=== PATIENT | female | born 1975 | race Caucasian/White ===

== ENCOUNTER 2023-09-09 19:09 | Emergency (ER) | payer OTHER ==
[~2023-09-09] VITALS: Ht 160 cm; Wt 81.6 kg
[2023-09-09 19:12] VITALS: BP_SYST 161; PULSE 99; RESP 26; TEMP 97.3; O2SAT 98
[2023-09-09 19:21] VITALS: O2SAT 99
[2023-09-09] MEDS: IPRATROPIUM/ALBUTEROL SULFATE 3 ML AMPUL.NEB (DUONEB) INH ONE (19:21)
[2023-09-09] MEDS: methylPREDNISolone SOD SUCC/PF 62.5 MG/ML VIAL IVP ONE (19:24)
[2023-09-09] MEDS: RACEPINEPHRINE HCL 0.5 ML VIAL.NEB INH ONE (19:51)
[2023-09-09] MEDS: NACL 0.9% 1,000 ML IV ONE (20:00)
[2023-09-09] MEDS: KETOROLAC TROMETHAMINE 30 MG VIAL IVP ONE (20:21)
[2023-09-09] MEDS: ALPRAZolam 0.25 MG TABLET PO ONE (20:40)
[2023-09-09] MEDS ORDERED: ALBMDI INH (21:14)
[2023-09-09 21:23] VITALS: BP_SYST 148; PULSE 93; RESP 18; TEMP 97.8; O2SAT 100
== END 2023-09-09 21:23 | disposition home or self-care (01) ==
LOC: SED 19:09
DX: J38.5 Laryngeal spasm (principal); J45.909 Unspecified asthma, uncomplicated; F17.200 Nicotine dependence, unspecified, uncomplicated; Z71.6 Tobacco abuse counseling; Z79.899 Other long term (current) drug therapy
CPT/HCPCS: 99284; 96374; 71045; 96361; 96375; J1885; J7030; 94640; 94664; 94760; J2930

== ENCOUNTER 2023-09-19 11:40 | Emergency (ER) | payer OTHER ==
[~2023-09-19] VITALS: Ht 160 cm; Wt 81.6 kg
[~2023-09-19 11:40] MED LIST: ALBMDI INH
[2023-09-19 11:48] VITALS: BP_SYST 146; PULSE 85; RESP 18; TEMP 98.3; O2SAT 100
[2023-09-19] MEDS: IPRATROPIUM/ALBUTEROL SULFATE 3 ML AMPUL.NEB (DUONEB) INH ONE (12:19)
[2023-09-19 12:27] LABS: BASOPHILS % (AUTO) 0.1 % (0.0-2.0); EOSINOPHILS % (AUTO) 0.1 % (0.0-4.0); HEMATOCRIT 26.5 % (36-48); HEMOGLOBIN 8.3 g/dL (12.0-16.0); LYMPHOCYTES # (AUTO) 1.4 K/uL (1.0-5.5); LYMPHOCYTES % (AUTO) 13.5 % (20.5-51.5); MEAN CORPUSCULAR HEMOGLOBIN 20 pg (27-31); MEAN CORPUSCULAR HGB CONC 31 % (32-36); MEAN CORPUSCULAR VOLUME 63 fL (79.0-98.0); MONOCYTES # (AUTO) 0.7 K/uL (0.0-1.0); MONOCYTES % (AUTO) 6.7 % (1.7-9.3); NEUTROPHILS # (AUTO) 8.3 K/uL (1.8-7.7); NEUTROPHILS % (AUTO) 79.6 % (40.0-70.0); PLATELET COUNT (AUTO) 569 K/uL (130-430); RED BLOOD CELL COUNT(AUTO) 4.23 MIL/uL (4.2-6.2); WHITE BLOOD COUNT (AUTO) 10.4 K/uL (4.8-10.8)
[2023-09-19 12:40] LABS: INFLUENZA TYPE A Negative (NEGATIVE); INFLUENZA TYPE B NEGATIVE (NEGATIVE)
[2023-09-19 12:40] LABS: ANION GAP 9 (5-15); CALCIUM 8.3 mg/dL (8.4-11.0); CARBON DIOXIDE 26 mmol/L (23-29); CHLORIDE 101 mmol/L (98-107); CREATININE 0.69 mg/dL (0.55-1.30); GFR AFRICAN AMERICAN 118 mL/min (>90); GLUCOSE 132 mg/dL (74-106); POTASSIUM 4.1 mmol/L (3.5-5.1); SODIUM SERUM 136 mmol/L (136-145); UREA NITROGEN, BLOOD 18 mg/dL (8-21)
[2023-09-19 12:41] LABS: GFR NON AFRICAN-AMERICAN 98 mL/min (>90)
[2023-09-19] MEDS ORDERED: iohexoL 350 mgI/mL, 100 ML INFUS..BTL IV ONE (14:10)
[2023-09-19] MEDS ORDERED: PRED20TA PO (15:13)
[2023-09-19] MEDS ORDERED: ZIT250 PO (15:13)
[2023-09-19] MEDS: methylPREDNISolone SOD SUCC/PF 62.5 MG/ML VIAL IVP ONE (15:16)
[2023-09-19] MEDS: KETOROLAC TROMETHAMINE 15 MG VIAL IVP ONE (15:16)
[2023-09-19] MEDS ORDERED: VALA10002 PO (15:38)
[2023-09-19 15:41] VITALS: BP_SYST 146; PULSE 85; RESP 18; TEMP 98.3; O2SAT 100
== END 2023-09-19 16:10 | disposition home or self-care (01) ==
LOC: SED 11:40
DX: J18.9 Pneumonia, unspecified organism (principal); J40 Bronchitis, not specified as acute or chronic; D64.9 Anemia, unspecified; R05.9 Cough, unspecified; Z79.899 Other long term (current) drug therapy; Z20.822 Contact with and (suspected) exposure to COVID-19
CPT/HCPCS: 99285; 96374; 71275; 71045; 96375; 87426; 80048; 83880; 85025; 85379; 84484; 36415; 93005; 94640; 81025; 87804 ×2; Q9967; J1885; J2930